=== PATIENT | female | born 1995 ===

== ENCOUNTER 2018-01-25 14:47 | Emergency (ER) | payer OTHER ==
[2018-01-25 15:14] VITALS: BP 105/69
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
== END 2018-01-25 16:30 | disposition home or self-care (01) ==
LOC: UCEAST 14:47
DX: S16.1XXA Strain of muscle, fascia and tendon at neck level, initial encounter (principal); S29.012A Strain of muscle and tendon of back wall of thorax, initial encounter; V43.52XA Car driver injured in collision with other type car in traffic accident, initial encounter; Y93.89 Activity, other specified; Y92.9 Unspecified place or not applicable
CPT/HCPCS: 99202; G0463